=== PATIENT | female | born 1985 | race African-American/Black ===

== ENCOUNTER 2017-03-05 00:02 | Emergency (ER) | payer MEDICAID ==
[~2017-03-05] VITALS: Ht 157.5 cm; Wt 75.3 kg
[~2017-03-05 00:02] MED LIST: IBUPROFEN600 MG ORAL; NKM
[2017-03-05 00:13] VITALS: BP 131/80
[2017-03-05] MEDS ORDERED: Bactrim DS (160mg/800mg) tab ORAL ONE (00:30)
[2017-03-05] MEDS ORDERED: Cephalexin 500mg cap ORAL ONE (00:30)
[2017-03-05] MEDS ORDERED: IBUPROFEN600 MG ORAL (00:39)
[2017-03-05] MEDS ORDERED: KEFLEX500 MG ORAL (00:39)
[2017-03-05] MEDS ORDERED: BACTRIM DS TAB1 EAC1 ORAL (00:39)
[2017-03-05 00:45] VITALS: BP 131/80
--- NOTE | 2017-03-05 03:04 | Emergency Room Report ---
History of Present Illness General Chief Complaint: Skin Rash/Abscess Source: Patient Present Illness HPI 31-year-old female presents ED for evaluation. States that she has spider bite on her buttock x3 days. Pain is a 6/10, throbbing, nonradiating. Denies fevers or chills. Denies any bleeding or discharge. No other aggravating relieving factors. Denies any other associated symptoms Allergies: Coded Allergies: No Known Allergies (Unverified , 01/31/16) Patient History Past Medical History: none Past Surgical History: none Pertinent Family History: none Social History: Denies: smoking, alcohol use, drug use Last Menstrual Period: 02/21/17 Now: No : 2 Para: 1 Immunizations: UTD Reviewed Nursing Documentation: PMH: Agreed, PSxH: Agreed Nursing Documentation-PMH Past Medical History: No History, Except For Review of Systems All Other Systems: negative except mentioned in HPI Physical Exam Vital Signs Date Time Temp Pulse Resp B/P (MAP) Pulse Ox O2 Delivery O2 Flow Rate FiO2 03/05/17 00:10 98.8 102 14 131/80 96 Room Air Sp02 EP Interpretation: reviewed, normal General Appearance: no apparent distress, alert, GCS 15, non-toxic Head: normocephalic Eyes: bilateral eye normal inspection, bilateral eye PERRL ENT: normal ENT inspection Neck: normal inspection Respiratory: normal inspection Cardiovascular #1: normal inspection Gastrointestinal: normal inspection Rectal: deferred Genitourinary: no CVA tenderness Musculoskeletal: normal inspection Neurologic: alert, oriented x3, responsive, motor strength/tone normal, sensory intact, speech normal Psychiatric: normal inspection Skin: other - induration/erythema noted to buttock. no fluctuance or discharge Lymphatic: normal inspection Medical Decision Making Diagnostic Impression: Primary Impression: Insect bite Qualified Codes: W57.XXXA - Bitten or stung by nonvenomous insect and other nonvenomous arthropods, initial encounter ER Course Hospital Course 31-year-old female presents to ED with redness, swelling to buttock Differential diagnoses include: Cellulitis, dermatitis, insect bite, abscess Clinical course Patient placed on stretcher. After initial history, physical exam reveals a young female in no acute distress. On exam there is a site for mild erythema and induration to the buttock. There is no fluctuance. There is no tenderness. no discharge noted given keflex/bactrim in ED Diagnosis - insect bite stable and discharged to home with prescription for Bactrim, motrin, Keflex. Warm soaks 3 times a day. Instructed to followup with PMD. Instructed return to ED if symptoms recur or worsen Last Vital Signs Date Time Temp Pulse Resp B/P (MAP) Pulse Ox O2 Delivery O2 Flow Rate FiO2 03/05/17 00:45 98.8 102 14 131/80 96 Room Air Status: improved Disposition: HOME, SELF-CARE Condition: Stable Scripts Ibuprofen* (MOTRIN*) 600 Mg Tablet 600 MG ORAL Q8H Y for For Pain, #30 TAB 0 Refills Prov: JENNIFER SOLITARIO M.D. 03/05/17 Trimethoprim/Sulfamethoxazole 160/800* (BACTRIM DS TABLET*) 1 Each Tablet 1 TAB ORAL Q12H, #14 TAB 0 Refills Prov: JENNIFER SOLITARIO M.D. 03/05/17 Cephalexin* (KEFLEX*) 500 Mg Capsule 500 MG ORAL Q6H, #28 CAP 0 Refills Prov: JENNIFER SOLITARIO M.D. 03/05/17 Referrals: NOT CHOSEN [facility]/,REFERRING Patient Instructions: Insect Bite, [id number] JENNIFER SOLITARIO M.D. Mar 05, 2017 03:04
== END 2017-03-05 00:45 | disposition home or self-care (01) ==
LOC: EMR 00:20
DX: S30.860A Insect bite (nonvenomous) of lower back and pelvis, initial encounter (principal); W57.XXXA Bitten or stung by nonvenomous insect and other nonvenomous arthropods, initial encounter; Y92.9 Unspecified place or not applicable; R21 Rash and other nonspecific skin eruption
CPT/HCPCS: 99284

== ENCOUNTER 2017-04-10 12:25 | Emergency (ER) | payer MEDICAID ==
[~2017-04-10] VITALS: Ht 157.5 cm; Wt 68.0 kg
[~2017-04-10 12:25] MED LIST changes: +BACTRIM DS TAB1 EAC1 ORAL; +KEFLEX500 MG ORAL
[2017-04-10 12:38] VITALS: BP 113/71
[2017-04-10 13:06] LABS: APPEARANCE,URINE CLEAR; BILIRUBIN, URINE NEGATIVE (NEGATIVE); COLOR,URINE PALE YELLOW; GLUCOSE, URINE (UA) NEGATIVE (NEGATIVE); KETONES,URINE NEGATIVE (NEGATIVE); LEUKOCYTE ESTERASE ,URINE 1+ (NEGATIVE); NITRITE,URINE NEGATIVE (NEGATIVE); PH,URINE 6.5 (4.5-8.0); PROTEIN,URINE NEGATIVE (NEGATIVE); UROBILINOGEN,URINE NORMAL MG/DL (0.0-1.0)
--- NOTE | 2017-04-10 13:34 | Emergency Room Report ---
History of Present Illness General Chief Complaint: Female Urogenital Problems Present Illness HPI 31-year-old female presents to the emergency department complaining of 3/10 in severity lower abdominal cramping in addition to moderate vaginal itching x3 days. she denies swollen tender lymph nodes, joint pain, external vaginal lesions fevers, chills, dysuria, urgency or frequency. denies vaginal bleeding or discharge. Denies nausea, vomiting or . Denies CP, Palpitations, LOC, AMS, dizziness, Changes in Vision, Sensation, paresthesias, or a sudden severe headache. She denies recent antibiotic use. started eating meat again x 1 week after being vegan for several years and as had intermittent upset stomach. Allergies: Coded Allergies: No Known Allergies (Unverified , 01/31/16) Patient History Past Medical History: see triage record Past Surgical History: none Pertinent Family History: none Immunizations: UTD Reviewed Nursing Documentation: PMH: Agreed, PSxH: Agreed Review of Systems All Other Systems: negative except mentioned in HPI Physical Exam Vital Signs Date Time Temp Pulse Resp B/P (MAP) Pulse Ox O2 Delivery O2 Flow Rate FiO2 04/10/17 12:28 97.7 91 20 113/71 99 Room Air Sp02 EP Interpretation: reviewed, normal General Appearance: no apparent distress, alert, GCS 15, non-toxic Head: normocephalic, atraumatic Eyes: bilateral eye normal inspection, bilateral eye PERRL ENT: hearing grossly normal, normal voice Neck: full range of motion Respiratory: lungs clear, normal breath sounds, speaking full sentences Cardiovascular #1: regular rate, rhythm Gastrointestinal: normal bowel sounds, non tender, soft Rectal: deferred Genitourinary: normal inspection, no CVA tenderness Musculoskeletal: back normal, gait/station normal, normal range of motion, non- tender Neurologic: alert, oriented x3, responsive, motor strength/tone normal, sensory intact, speech normal Skin: normal color, no rash, warm/dry, well hydrated Lymphatic: no adenopathy Medical Decision Making PA Attestation Dr. Kiran is my supervising Physician whom patient management has been discussed with. Diagnostic Impression: Primary Impression: Vaginitis Qualified Codes: N76.0 - Acute vaginitis Additional Impression: Gastritis Qualified Codes: K29.00 - Acute gastritis without bleeding ER Course 31-year-old female presents to the emergency department complaining of 3/10 in severity lower abdominal cramping in addition to moderate vaginal itching x3 days. she denies swollen tender lymph nodes, joint pain, external vaginal lesions fevers, chills, dysuria, urgency or frequency. denies vaginal bleeding or discharge. Denies nausea, vomiting or . Denies CP, Palpitations, LOC, AMS, dizziness, Changes in Vision, Sensation, paresthesias, or a sudden severe headache. She denies recent antibiotic use. started eating meat again x 1 week after being vegan for several years and as had intermittent upset stomach. Ddx considered but are not limited to UTi , Pyelo, STI, Stone, Cystitis, vaginal laceration, vaginitis. Vital signs: are WNL, pt. is afebrile H& PE are most consistent with: yeast vaginitis, and gastritis. ORDERS: - UA labs are attached - Most indicative of contamination: presence of equal amounts of bacteria and squamous cells, no elevation in inflammatory markers, nitrite negative. -Urine Hcg: Negative ED INTERVENTIONS: None required at this time. DISCHARGE: At this time pt. is stable for d/c to home. Will provide printed patient care instructions, and any necessary prescriptions. Care plan and follow up instructions have been discussed with the patient prior to discharge. Labs Test 04/10/17 12:55 Urine Color Pale yellow Urine Appearance Clear Urine pH 6.5 (4.5-8.0) Urine Specific [place] 1.015 (1.005-1.035) Urine Protein Negative (NEGATIVE) Urine Glucose (UA) Negative (NEGATIVE) Urine Ketones Negative (NEGATIVE) Urine Occult Blood 1+ (NEGATIVE) Urine Nitrite Negative (NEGATIVE) Urine Bilirubin Negative (NEGATIVE) Urine Urobilinogen Normal MG/DL (0.0-1.0) Urine Leukocyte Esterase 1+ (NEGATIVE) Urine RBC 2-4 /HPF (0 - 2) Urine WBC 2-4 /HPF (0 - 2) Urine Squamous Epithelial Cells Few /LPF (NONE/OCC) Urine Bacteria Occasional /HPF (NONE) Urine HCG, Qualitative Negative Last Vital Signs Date Time Temp Pulse Resp B/P (MAP) Pulse Ox O2 Delivery O2 Flow Rate FiO2 04/10/17 12:28 97.7 91 20 113/71 99 Room Air Disposition: HOME, SELF-CARE Condition: Stable Scripts Fluconazole (FLUCONAZOLE) 100 Mg Tablet 100 MG ORAL DAILY for 3 Days, #3 TAB 0 Refills Prov: Deedee Deshpande 04/10/17 Ranitidine Hcl* (ZANTAC*) 150 Mg Tablet 150 MG ORAL TWICE A DAY for 7 Days, #14 TAB Prov: Deedee Deshpande 04/10/17 Patient Instructions: Gastritis, Adult, [id number], Vaginal Yeast Infection, Adult Additional Instructions: Take medications as directed. Follow up with a Primary Care Provider in 3-5 days, even if your symptoms have resolved. --Please review list of primary care clinics, if you do not already have a primary care provider Return sooner to ED if new symptoms occur, or current symptoms become worse. - Please note that this Emergency Department Report was dictated using [employer] or probation officer technology software, occasionally this can lead to erroneous entry secondary to interpretation by the dictation equipment. Deedee Deshpande Apr 10, 2017 13:34
[2017-04-10] MEDS ORDERED: ZANTAC150 MG ORAL (13:35)
[2017-04-10] MEDS ORDERED: FLUCONAZOLE100 MG ORAL (13:35)
[2017-04-10 13:40] VITALS: BP 124/76
== END 2017-04-10 13:40 | disposition home or self-care (01) ==
LOC: EMR 13:40
DX: N76.0 Acute vaginitis (principal); R10.30 Lower abdominal pain, unspecified; K29.70 Gastritis, unspecified, without bleeding
CPT/HCPCS: 81003; 81025; 99284

== ENCOUNTER 2017-04-30 12:34 | Emergency (ER) | payer MEDICAID ==
[~2017-04-30] VITALS: Ht 157.5 cm; Wt 73.9 kg
[~2017-04-30 12:34] MED LIST changes: +FLUCONAZOLE100 MG ORAL; +ZANTAC150 MG ORAL
[2017-04-30] MEDS ORDERED: BACTRIM DS TAB1 EAC1 ORAL (13:39)
[2017-04-30] MEDS ORDERED: CEPHALEXIN500 MG ORAL (13:39)
--- NOTE | 2017-04-30 13:40 | Emergency Room Report ---
History of Present Illness General Chief Complaint: Skin Rash/Abscess Source: Patient Present Illness HPI 31-year-old female patient presents ER complaining of abscess on the back of her neck for the past 2 days. Patient reports the abscess has gotten bigger, more red, and painful during that time. Patient denies medication use for relief of symptoms. Patient reports history of abscess on breast that was previously drained; patient requesting abscess to be drained today. Patient denies fever, neck pain, rash, SOB, nausea, vomiting. Allergies: Coded Allergies: No Known Allergies (Unverified , 01/31/16) Patient History Past Medical History: see triage record Past Surgical History: none Pertinent Family History: none Social History: Denies: smoking, alcohol use, drug use Last Menstrual Period: 04/28/2017 Now: No Immunizations: UTD Reviewed Nursing Documentation: PMH: Agreed, PSxH: Agreed Nursing Documentation-PMH Past Medical History: No History, Except For Review of Systems All Other Systems: negative except mentioned in HPI Physical Exam Vital Signs Date Time Temp Pulse Resp B/P (MAP) Pulse Ox O2 Delivery O2 Flow Rate FiO2 04/30/17 12:39 98.4 80 14 109/67 98 Room Air Sp02 EP Interpretation: reviewed, normal General Appearance: no apparent distress, alert, GCS 15, non-toxic Head: normocephalic, atraumatic Eyes: bilateral eye normal inspection, bilateral eye PERRL Neck: full range of motion, no bony tend Respiratory: lungs clear, normal breath sounds, speaking full sentences Cardiovascular #1: regular rate, rhythm Musculoskeletal: back normal, gait/station normal, normal range of motion, non- tender Neurologic: alert, oriented x3, responsive, motor strength/tone normal, sensory intact, speech normal Psychiatric: mood/affect normal Skin: no rash, warm/dry, other - 3 cm erythematous raised, fluctuant abscess located on right side of posterior neck at bottom of hair line, no bleeding, no pus, no blisters, no vesicles Lymphatic: adenopathy Procedures Incision and Drainage Incision and Drainage : Consent: Verbal Site: Right side of posterior neck Blade Size: 11 I & D Procedure: betadine prep, sterile drapes applied, sterile dressing applied Wound Location: neck Wound's Depth, Shape: superficial Wound Length (cm): 3 Wound Explored: contaminated Irrigated w/ Saline (ccs): 2 Anesthesia: Lidocaine w/ Epi Volume Anesthetic (ccs): 2 Patient Tolerated: Well Complications: None Medical Decision Making PA Attestation Dr. Westfall is my supervising physician with whom patient management has been discussed with. Diagnostic Impression: Primary Impression: Abscess ER Course Pt. presents to the ED c/o abscess Ddx considered but are not limited to rash, cellulitis, abscess, sebaceous cyst , carbuncle, folliculitis. Vital signs: are WNL, pt. is afebrile ORDERS: Lidocaine with epinephrine ED INTERVENTIONS: Ibuprofen for pain Field block of abscess performed with lidocaine. I&D of abscess performed. Sterile dressing applied to wound following procedure. DISCHARGE: -Rx provided for Keflex -Rx provided for Bactrim At this time pt. is stable for d/c to home. Will provide printed patient care instructions and any necessary prescriptions. Care plan and follow up instructions have been discussed with the patient prior to discharge. Patient instructed to follow-up with primary care provider in 2 - 3 days for wound recheck. Patient questions asked and answered. ER precautions given. Patient instructed to return to ER immediately for any new or worsening of symptoms including but not limited to fever, worsening of pain symptoms. Last Vital Signs Date Time Temp Pulse Resp B/P (MAP) Pulse Ox O2 Delivery O2 Flow Rate FiO2 04/30/17 12:39 98.4 80 14 109/67 98 Room Air Status: improved Disposition: HOME, SELF-CARE Condition: Stable Scripts Trimethoprim/Sulfamethoxazole 160/800* (BACTRIM DS TABLET*) 1 Each Tablet 1 TAB ORAL TWICE A DAY for 7 Days, #14 TAB Prov: Amadou Kwong 04/30/17 Cephalexin* (KEFLEX*) 500 Mg Capsule 500 MG ORAL EVERY 12 HOURS for 7 Days, #14 CAP 0 Refills Prov: Amadou Kwong 04/30/17 Referrals: [facility] (PCP) Patient Instructions: Abscess Additional Instructions: Will provide printed patient care instructions and any necessary prescriptions. Care plan and follow up instructions have been discussed with the patient prior to discharge. Patient instructed to follow-up with primary care provider in 2 3 days for wound recheck. Patient questions asked and answered. ER precautions given. Patient instructed to return to ER immediately for any new or worsening of symptoms including but not limited to fever, worsening of pain symptoms. Amadou Kwong Apr 30, 2017 13:39
[2017-04-30 14:18] VITALS: BP 107/76
== END 2017-04-30 14:20 | disposition home or self-care (01) ==
LOC: EMR 13:20
DX: L02.11 Cutaneous abscess of neck (principal)
CPT/HCPCS: 10060; 99284

== ENCOUNTER 2017-06-18 18:47 | Emergency (ER) | payer MEDICAID ==
[~2017-06-18] VITALS: Ht 157.5 cm; Wt 73.9 kg
[~2017-06-18 18:47] MED LIST changes: +CEPHALEXIN500 MG ORAL
[2017-06-18 19:25] VITALS: BP 129/82
--- NOTE | 2017-06-18 20:18 | Emergency Room Report ---
History of Present Illness General Chief Complaint: Vaginal Source: Patient Present Illness HPI 31 yo female patient presents to ER complaining of vaginal discharge. Reports foul smelling discharge; denies bloody discharge. Denies dysuria, frequency, hematuria. Denies itchiness, rash, open genital wounds. Reports LMP was one month ago; normal. Reports recent sexual activity with man she is dating; states they are not exclusive, she has not slept with other people does not know if he has or not; denies use of contraceptive methods. ; hx of . Denies fever, back pain, HERRERA, vision changes. Reports cramping; states normal for her when shes about to begin her period. Denies chest pain, SOB. States friend reports similar symptoms, has not been tested for STI recently. Allergies: Coded Allergies: No Known Allergies (Unverified , 01/31/16) Patient History Past Medical History: see triage record Last Menstrual Period: 2nd week of may Now: No : 2 Reviewed Nursing Documentation: PMH: Agreed, PSxH: Agreed Review of Systems All Other Systems: negative except mentioned in HPI Physical Exam Vital Signs Date Time Temp Pulse Resp B/P (MAP) Pulse Ox O2 Delivery O2 Flow Rate FiO2 06/18/17 19:13 98.9 74 20 129/82 99 Room Air 99.0 Sp02 EP Interpretation: reviewed, normal General Appearance: well appearing, no apparent distress, alert, GCS 15 Head: normocephalic, atraumatic Eyes: bilateral eye normal inspection, bilateral eye PERRL ENT: hearing grossly normal, normal pharynx, no angioedema, normal voice, uvula midline, moist mucus membranes Neck: full range of motion Respiratory: lungs clear, normal breath sounds, no rhonchi, no respiratory distress, no accessory muscle use, no wheezing, speaking full sentences Cardiovascular #1: regular rate, rhythm, no edema Gastrointestinal: non tender, soft, no mass, non-distended, no guarding, no rebound Genitourinary: no CVA tenderness, deferred Musculoskeletal: back normal, digits/nails normal, gait/station normal, normal range of motion, non-tender, no calf tenderness Neurologic: alert, oriented x3, responsive, motor strength/tone normal, sensory intact Psychiatric: mood/affect normal Skin: no rash Lymphatic: no adenopathy Medical Decision Making PA Attestation Dr. Fong is my supervising Physician whom patient management has been discussed with. Diagnostic Impression: Primary Impression: STI (sexually transmitted infection) ER Course Pt. presents to the ED c/o urinary symptoms. Ddx considered but are not limited to gonorrhea, chalmydia, cystitis, pylonephritis. Vital signs: are WNL, pt. is afebrile Ordered UA, urine . ER COURSE UA negative for infection. Copy of results provided to patient. Urine Negative Discuss results with patient. Does not require treatment for UTI at this time. Due to recent history of unprotected sex, will treat patient for possible STI. Informed patient to followup with STI clinic for further testing and treatment as needed. Informed patient to instruct p Ordered Azithromycin and Rocephin DISCHARGE: Advised to use safe sex practices including but not limited to use of condoms. Instructed patient to follow up with STI clinic and/or PCP for future STI treatment and prevention. Instructed patient to inform partner of need for treatment to prevent future infection. At this time pt. is stable for d/c to home. Patient resting comfortably, in no acute distress, nontoxic appearing, talking on phone without difficulty. Will provide printed patient care instructions, and any necessary prescriptions. Care plan and follow up instructions have been discussed with the patient prior to discharge Patient questions asked and answered. Patient reports understanding and agreement to treatment plan. ER precautions provided. Patient instructed to return to ER immediately for any new or worsening of symptoms. Labs Test 06/18/17 19:17 Urine Color Pale yellow Urine Appearance Clear Urine pH 6.5 (4.5-8.0) Urine Specific [place] 1.015 (1.005-1.035) Urine Protein Negative (NEGATIVE) Urine Glucose (UA) Negative (NEGATIVE) Urine Ketones Negative (NEGATIVE) Urine Occult Blood Negative (NEGATIVE) Urine Nitrite Negative (NEGATIVE) Urine Bilirubin Negative (NEGATIVE) Urine Urobilinogen Normal MG/DL (0.0-1.0) Urine Leukocyte Esterase Negative (NEGATIVE) Urine HCG, Qualitative Negative Last Vital Signs Date Time Temp Pulse Resp B/P (MAP) Pulse Ox O2 Delivery O2 Flow Rate FiO2 06/18/17 19:13 98.9 74 20 129/82 99 Room Air 99.0 Disposition: HOME, SELF-CARE Condition: Stable Patient Instructions: Sexually Transmitted Disease, [id number] Additional Instructions: Followup with primary care provider in 3 -5 days. Followup with STI clinic for further diagnosis and treatment. All sexual partners must be evaluated and treated as well. Take medications as directed. Patient questions asked and answered. ER precautions given, patient instructed to return to ER immediately for any new or worsening of symptoms. Amadou Kwong Jun 18, 2017 20:18
[2017-06-18 20:30] LABS: APPEARANCE,URINE CLEAR; BILIRUBIN, URINE NEGATIVE (NEGATIVE); COLOR,URINE PALE YELLOW; GLUCOSE, URINE (UA) NEGATIVE (NEGATIVE); KETONES,URINE NEGATIVE (NEGATIVE); LEUKOCYTE ESTERASE ,URINE NEGATIVE (NEGATIVE); NITRITE,URINE NEGATIVE (NEGATIVE); PH,URINE 6.5 (4.5-8.0); PROTEIN,URINE NEGATIVE (NEGATIVE); UROBILINOGEN,URINE NORMAL MG/DL (0.0-1.0)
[2017-06-18] MEDS ORDERED: Azithromycin 250mg tab ORAL ONE (21:15)
[2017-06-18] MEDS ORDERED: Lidocaine 1% MPF 10mg/ml 5ml INJ ONE (21:15)
[2017-06-18 21:30] VITALS: BP 129/82
== END 2017-06-18 21:30 | disposition home or self-care (01) ==
LOC: EMR 19:45
DX: A64 Unspecified sexually transmitted disease (principal)
CPT/HCPCS: 81003; 81025; 96372; 99284; J0696; Q0144

== ENCOUNTER 2017-07-01 15:32 | Emergency (ER) | payer MEDICAID, BC ==
[~2017-07-01] VITALS: Ht 157.5 cm; Wt 72.6 kg
--- NOTE | 2017-07-01 15:47 | Emergency Room Report ---
History of Present Illness General Chief Complaint: Chest Pain Present Illness HPI 32 yo female patient presents to ER complaining of chest pain since 9AM this morning. Denies hx of LA or asthma. Reports using cocaine last night at a alliance party and smoking marijuana. Denies hx of drug use prior to last night. Reports feeling "anxiety this morning" following drug use. Denies pain radiating down arms. Denies fever, HERRERA, abdominal pain, vision changes, difficulty breathing. Allergies: Coded Allergies: No Known Allergies (Unverified , 01/31/16) Patient History Past Medical History: see triage record Social History: Reports: smoking - marijuana Last Menstrual Period: 06/25/17 Now: No : 2 Para: 1 Reviewed Nursing Documentation: PMH: Agreed; PSxH: Agreed Nursing Documentation-PMH Past Medical History: No History, Except For Hx Cardiac Problems: No - Uterine fibroids Review of Systems All Other Systems: negative except mentioned in HPI Physical Exam Vital Signs Date Time Temp Pulse Resp B/P (MAP) Pulse Ox O2 Delivery O2 Flow Rate FiO2 07/01/17 15:36 98.0 86 18 119/93 100 Room Air 98.1 Sp02 EP Interpretation: reviewed, normal General Appearance: well appearing, no apparent distress, alert, GCS 15, non- toxic Head: normocephalic, atraumatic Eyes: bilateral eye normal inspection, bilateral eye PERRL ENT: hearing grossly normal, normal pharynx, no angioedema, normal voice, TMs + canals normal, uvula midline, moist mucus membranes Neck: full range of motion Respiratory: lungs clear, normal breath sounds, no rhonchi, no respiratory distress, no accessory muscle use, no wheezing, speaking full sentences, other - chest TTP Gastrointestinal: non tender, soft, no mass, non-distended, no guarding, no rebound Musculoskeletal: back normal, digits/nails normal, gait/station normal, normal range of motion, non-tender Neurologic: alert, oriented x3, responsive, motor strength/tone normal, sensory intact Skin: no rash Lymphatic: no adenopathy Medical Decision Making PA Attestation Dr. Fong is my supervising Physician whom patient management has been discussed with. Diagnostic Impression: Primary Impression: Drug use Additional Impression: Musculoskeletal chest pain ER Course Pt presents to ED c/o chest pain. DDX considered but are not limited to asthma, viral URI, influenza, bronchitis, LA, drug toxicity. On PE, chest is TTP; chest pain likely musculoskeletal in nature. Patient instructed to take NSAIDs as needed for pain symptoms. Will order labs to check for cardiac etiology. VITAL SIGNS are WNL, patient is afebrile. Ordered labs, EKG, CXR, and meds. ER COURSE Labs unremarkable, no elevation in WBC. No elevation in troponin. Urine negative UA negative for infection. EKG negative for ST elevation or arrhythmia. CXR negative for acute disease. Urine drug screen positive for THC and cocaine. Patient sleeping in bed. Patient reports feeling better, ready to discharge home. Discuss lab results with patient. Informed pain may be musculoskeletal in nature or due to anxiety. Informed patient that drug toxicity can cause cardiac problems and other complications. Informed patient not to do drugs. Patient reports agreement. Patient reports feeling better now. Followup with PCP for further treatment and referral. Don't use drugs. Patient agrees. DISCHARGE: Rx provided for Tylenol. At this time pt is stable for d/c to home. Patient is resting comfortably in no acute distress, nontoxic appearing, able to answer questions without difficulty. Patient to take medications as instructed Will provide with patient care instructions and any necessary prescriptions. Care plan and follow-up instructions provided. Patient instructed to follow-up with primary care provider in 2-3 days. Patient questions asked and answered. Patient reports understanding and agreement to treatment plan. ER precautions given. Patient instructed to return to ER immediately for any new or worsening of symptoms including but not limited to increasing SOB, persistent fever. Labs Test 07/01/17 16:05 White Blood Count 8.7 K/UL (4.8-10.8) Red Blood Count 4.31 M/UL (4.20-5.40) Hemoglobin 13.7 G/DL (12.0-16.0) Hematocrit 38.9 % (37.0-47.0) Mean Corpuscular Volume 90 FL (80-99) Mean Corpuscular Hemoglobin 31.7 PG (27.0-31.0) Mean Corpuscular Hemoglobin Concent 35.2 G/DL (32.0-36.0) Red Cell Distribution Width 11.8 % (11.6-14.8) Platelet Count 407 K/UL (150-450) Mean Platelet Volume 6.1 FL (6.5-10.1) Neutrophils (%) (Auto) 71.5 % (45.0-75.0) Lymphocytes (%) (Auto) 20.2 % (20.0-45.0) Monocytes (%) (Auto) 6.0 % (1.0-10.0) Eosinophils (%) (Auto) 0.5 % (0.0-3.0) Basophils (%) (Auto) 1.8 % (0.0-2.0) Urine HCG, Qualitative Negative (NEGATIVE) Sodium Level 143 MMOL/L (136-145) Potassium Level 3.8 MMOL/L (3.5-5.1) Chloride Level 106 MMOL/L (98-107) Carbon Dioxide Level 26 MMOL/L (21-32) Anion Gap 11 mmol/L (5-15) Blood Urea Nitrogen 10 mg/dL (7-18) Creatinine 1.0 MG/DL (0.55-1.30) Estimat Glomerular Filtration Rate > 60 mL/min (>60) Glucose Level 85 MG/DL (74-106) Calcium Level 8.9 MG/DL (8.5-10.1) Total Bilirubin 0.4 MG/DL (0.2-1.0) Aspartate Amino Transf (AST/SGOT) 15 U/L (15-37) Alanine Aminotransferase (ALT/SGPT) 17 U/L (12-78) Alkaline Phosphatase 68 U/L (46-116) Total Creatine Kinase 240 U/L (26-308) Creatine Kinase MB 1.1 NG/ML (0.0-3.6) Creatine Kinase MB Relative Index 0.4 Troponin I 0.000 ng/mL (0.000-0.056) Total Protein 8.0 G/DL (6.4-8.2) Albumin 4.1 G/DL (3.4-5.0) Globulin 3.9 g/dL Albumin/Globulin Ratio 1.1 (1.0-2.7) Urine Opiates Screen Negative (NEGATIVE) Urine Barbiturates Screen Negative (NEGATIVE) Phencyclidine (PCP) Screen Negative (NEGATIVE) Urine Amphetamines Screen Negative (NEGATIVE) Urine Benzodiazepines Screen Negative (NEGATIVE) Urine Cocaine Screen Positive (NEGATIVE) Urine Marijuana (THC) Screen Positive (NEGATIVE) EKG Diagnostic Results Rate: normal Rhythm: NSR ST Segments: no acute changes ASA given to the pt in ED: Yes PA ScribNils Kwong PA-C Rhythm Strip Diag. Results EP Interpretation: yes Rate: 63 Rhythm: NSR, no PVC's, no ectopy LEIA Kwong PA-C Chest X-Ray Diagnostic Results Chest X-Ray Diagnostic Results : Chest X-Ray Ordered: Yes # of Views/Limited/Complete: 1 View Indication: Chest Pain EP Interpretation: Yes PA Xray: Interpretation reviewed, by supervising MD, and agrees with findings. Interpretation: no consolidation, no effusion, no pneumothorax, no acute cardiopulmonary disease Impression: No acute disease LEIA Scribe Grace Kwong PA-C Last Vital Signs Date Time Temp Pulse Resp B/P (MAP) Pulse Ox O2 Delivery O2 Flow Rate FiO2 07/01/17 15:36 98.0 86 18 119/93 100 Room Air 98.1 Disposition: HOME, SELF-CARE Condition: Stable Scripts Acetaminophen* (TYLENOL EXTRA STRENGTH*) 500 Mg Tablet 500 MG ORAL Q8H PRN for Prn Headache/Temp > 101, #30 TAB 0 Refills Prov: Amadou Kwong 07/01/17 Patient Instructions: Costochondritis, [id number], Drug Overdose Additional Instructions: Followup with primary care provider in 2-3 days. Discuss referral and treatment at that time. Take medications as directed. Don't use drugs. Patient questions asked and answered. ER precautions given, patient instructed to return to ER immediately for any new or worsening of symptoms including but not limited to chest pain, SOB, abdominal pain, fever, intractable vomiting, vision changes. Amadou Kwong Jul 01, 2017 15:47
[2017-07-01 16:32] LABS: BASOPHILS % (AUTO) 1.8 % (0.0-2.0); EOSINOPHILS % (AUTO) 0.5 % (0.0-3.0); HEMATOCRIT 38.9 % (37.0-47.0); HEMOGLOBIN 13.7 G/DL (12.0-16.0); LYMPHOCYTES % (AUTO) 20.2 % (20.0-45.0); MEAN CORPUSCULAR VOLUME 90 FL (80-99); NEUTROPHILS % (AUTO) 71.5 % (45.0-75.0); PLATELET COUNT 407 K/UL (150-450); RED BLOOD COUNT 4.31 M/UL (4.20-5.40); RED CELL DISTRIBUTION WIDTH 11.8 % (11.6-14.8); WHITE BLOOD COUNT 8.7 K/UL (4.8-10.8)
[2017-07-01 16:37] VITALS: BP 119/93
--- NOTE | 2017-07-01 16:45 | Diagnostic Imaging Report ---
Indication: Chest pain Technique: One view of the chest Comparison: 10/03/2011 Findings: Lungs and pleural spaces are clear. Heart size is normal. There is no significant interim change Impression: No acute process
[2017-07-01 17:05] LABS: ANION GAP 11 mmol/L (5-15); BLOOD UREA NITROGEN 10 mg/dL (7-18); CALCIUM 8.9 MG/DL (8.5-10.1); CARBON DIOXIDE 26 MMOL/L (21-32); CHLORIDE 106 MMOL/L (98-107); POTASSIUM 3.8 MMOL/L (3.5-5.1); SODIUM 143 MMOL/L (136-145)
[2017-07-01 17:20] LABS: ALANINE AMINOTRANSFERASE 17 U/L (12-78); ALBUMIN 4.1 G/DL (3.4-5.0); ALBUMIN/GLOBULIN RATIO 1.1 (1.0-2.7); ALKALINE PHOSPHATASE 68 U/L (46-116); ASPARTATE AMINO TRANSFERASE 15 U/L (15-37); BILIRUBIN,TOTAL 0.4 MG/DL (0.2-1.0); CKMB 1.1 NG/ML (0.0-3.6); CREATINE KINASE 240 U/L (26-308)
[2017-07-01] MEDS ORDERED: TYLENOL EXTRA500 MG ORAL (18:19)
[2017-07-01 18:58] VITALS: BP 119/93
--- NOTE | 2017-07-11 18:21 | Cardiology Report ---
APPROVED REPORT EKG Measurement Heart [id number] Sinus rhythm with 1st degree AV block Otherwise normal ECG
== END 2017-07-01 19:00 | disposition home or self-care (01) ==
LOC: EMR 16:45
DX: R07.89 Other chest pain (principal); F12.90 Cannabis use, unspecified, uncomplicated
CPT/HCPCS: 36415; 71045; 80053; 80307; 81025; 82550; 82553; 84484; 85025; 93005; 99283

== ENCOUNTER 2019-02-01 11:28 | Emergency (ER) | payer BC, MEDICAID ==
[~2019-02-01] VITALS: Ht 157.5 cm; Wt 77.1 kg
[~2019-02-01 11:28] MED LIST changes: +TYLENOL EXTRA500 MG ORAL
[2019-02-01] MEDS ORDERED: PRENATAL GUMMI1 EACH PO (11:45)
--- NOTE | 2019-02-01 12:00 | NUR ---
ED Nurse Note:urine sent to labs
[2019-02-01 12:23] LABS: APPEARANCE,URINE CLEAR; BILIRUBIN, URINE NEGATIVE (NEGATIVE); COLOR,URINE PALE YELLOW; GLUCOSE, URINE (UA) NEGATIVE (NEGATIVE); KETONES,URINE NEGATIVE (NEGATIVE); LEUKOCYTE ESTERASE ,URINE 2+ (NEGATIVE); NITRITE,URINE NEGATIVE (NEGATIVE); PH,URINE 6 (4.5-8.0); PROTEIN,URINE NEGATIVE (NEGATIVE); UROBILINOGEN,URINE NORMAL MG/DL (0.0-1.0)
--- NOTE | 2019-02-01 13:15 | NUR ---
ED Nurse Note:blood sent to labs
--- NOTE | 2019-02-01 13:56 | NUR ---
ED Nurse Note:pt. went to abdominal U/S
--- NOTE | 2019-02-01 14:33 | NUR ---
ED Nurse Note:pt. is back from U/S - given food
--- NOTE | 2019-02-01 14:51 | Emergency Room Report ---
History of Present Illness General Chief Complaint: Complications Source: Patient Present Illness HPI 33-year-old female presents to the emergency department complaining of 5 out of 10 severity lower abdominal cramping during early x2 days. Patient reports that she is G2, P1 with one previous normal vaginal delivery without complications. Patient states that she does see [employer] regularly. Patient denies vaginal bleeding. She reports vaginal discharge. Patient states that she was treated using vaginal cream 2 months ago for bacterial vaginosis. Patient states that she has had sexual intercourse with her partner since and her symptoms returned. She denies suspicion of STI. She denies nausea, vomiting, constipation, diarrhea. Patient denies urinary frequency, urgency, hematuria, dysuria or genital lesions/rashes. She denies fevers or chills. She reports her symptoms are intermittent and states she has not noticed an increase in frequency.Pt. with hx of fibroids. Denies CP, Palpitations, LOC, AMS , dizziness, Changes in Vision, Sensation, paresthesias, or a sudden severe headache. Allergies: Coded Allergies: No Known Allergies (Unverified , 01/31/16) Patient History Past Medical History: see triage record Past Surgical History: none Pertinent Family History: none Now: Yes - 22 weeks Reviewed Nursing Documentation: PMH: Agreed; PSxH: Agreed Nursing Documentation-PMH Past Medical History: No History, Except For Hx Cardiac Problems: No - Uterine fibroids Review of Systems All Other Systems: negative except mentioned in HPI Physical Exam Vital Signs Date Time Temp Pulse Resp B/P (MAP) Pulse Ox O2 Delivery O2 Flow Rate FiO2 02/01/19 11:40 98.8 98 20 102/67 (79) 97 Room Air Sp02 EP Interpretation: reviewed, normal General Appearance: no apparent distress, alert, GCS 15, non-toxic Head: normocephalic, atraumatic Eyes: bilateral eye normal inspection, bilateral eye PERRL ENT: hearing grossly normal, normal voice Neck: full range of motion Respiratory: chest non-tender, lungs clear, normal breath sounds, speaking full sentences Cardiovascular #1: regular rate, rhythm Gastrointestinal: normal bowel sounds, non tender, soft, other - gravid, fundal height just above umbillicus Rectal: deferred Genitourinary: normal inspection, other - modified speculum exam, to obtain sample of D/c for wet mount prep, milky white malodorus d/c was present. Musculoskeletal: back normal, gait/station normal, normal range of motion, non- tender Neurologic: alert, oriented x3, responsive, motor strength/tone normal, sensory intact, normal gait, speech normal, grossly normal Psychiatric: judgement/insight normal Skin: no rash Lymphatic: no adenopathy Medical Decision Making PA Attestation Dr. Brown Is my supervising Physician whom patient management has been discussed with. Diagnostic Impression: Primary Impression: Bacterial vaginosis in Additional Impression: Abdominal cramping affecting ER Course 33-year-old female presents to the emergency department complaining of 5 out of 10 severity lower abdominal cramping during early x2 days. Patient reports that she is G2, P1 with one previous normal vaginal delivery without complications. Patient states that she does see [employer] regularly. Patient denies vaginal bleeding. She reports vaginal discharge. Patient states that she was treated using vaginal cream 2 months ago for bacterial vaginosis. Patient states that she has had sexual intercourse with her partner since and her symptoms returned. She denies suspicion of STI. She denies nausea, vomiting, constipation, diarrhea. Patient denies urinary frequency, urgency, hematuria, dysuria or genital lesions/rashes. She denies fevers or chills. She reports her symptoms are intermittent and states she has not noticed an increase in frequency.Pt. with hx of fibroids. Denies CP, Palpitations, LOC, AMS , dizziness, Changes in Vision, Sensation, paresthesias, or a sudden severe headache. Ddx considered but are not limited to: Fibroid, ectopic , Fibroid, Spontaneous , Vital signs: are WNL, pt. is afebrile H&PE are most consistent with: Vaginosis, UTI during early , Inevitable , Spontaneous - Pt. nontoxic in appearance, NAD, no evidence to suggest acute abdomen at this time. ORDERS: -Urine hcg- Positive -Wet mount prep: Many clue cells UA: Within normal limits -Serum Hcg Quant: -Pelvic US complete- normal intrauterine estimated at 21 weeks, 2 days weeks gestation with a heart rate of 148 -I do not identify an emergent condition at this time. With current presentation , pt. is stable for close outpatient follow up and conservative treatment. D/ w pt. to return promptly to ED with worsening or new symptoms.- Pt. verbalizes' understanding and agreement with proposed treatment plan. DISCHARGE: At this time pt. is stable for d/c to home. Will provide printed patient care instructions, and any necessary prescriptions. Care plan and follow up instructions have been discussed with the patient prior to discharge. Labs Test 02/01/19 11:55 02/01/19 13:00 Urine Color Pale yellow Urine Appearance Clear Urine pH 6 (4.5-8.0) Urine Specific [place] 1.005 (1.005-1.035) Urine Protein Negative (NEGATIVE) Urine Glucose (UA) Negative (NEGATIVE) Urine Ketones Negative (NEGATIVE) Urine Blood Negative (NEGATIVE) Urine Nitrite Negative (NEGATIVE) Urine Bilirubin Negative (NEGATIVE) Urine Urobilinogen Normal MG/DL (0.0-1.0) Urine Leukocyte Esterase 2+ (NEGATIVE) Urine RBC 0 /HPF (0 - 2) Urine WBC 2-4 /HPF (0 - 2) Urine Squamous Epithelial Cells Moderate /LPF (NONE/OCC) Urine Bacteria Few /HPF (NONE) Urine HCG, Qualitative Positive (NEGATIVE) Human Chorionic Gonadotropin, Quant 02059 mIU/mL (1-6) CT/MRI/US Diagnostic Results CT/MRI/US Diagnostic Results : Imaging Test Ordered: US OB Impression "Normal intrauterine estimated at 21 weeks, 2 days weeks gestation with a heart rate of 148" per official radiology report- Please see report for specific details. Last Vital Signs Date Time Temp Pulse Resp B/P (MAP) Pulse Ox O2 Delivery O2 Flow Rate FiO2 02/01/19 11:40 98.8 98 20 102/67 (79) 97 Room Air Disposition: HOME, SELF-CARE Condition: Stable Scripts Acetaminophen (8 HOUR PAIN RELIEF) 650 Mg Tablet.er 650 MG ORAL EVERY 8 HOURS, #20 TAB Prov: Deedee Deshpande 02/01/19 Metronidazole* (FLAGYL*) 500 Mg Tablet 500 MG ORAL BID for 7 Days, #14 TAB Prov: Deedee Deshpande 02/01/19 Referrals: NON PHYSICIAN (PCP) Patient Instructions: Abdominal Pain During , [id number], Bacterial Vaginosis, [id number] Additional Instructions: Take medications as directed. Follow up with a OBGYN within 3 days, even if your symptoms have resolved. Return sooner to ED if new symptoms occur, or current symptoms become worse. - Please note that this Emergency Department Report was dictated using [employer] technology software, occasionally this can lead to erroneous entry secondary to interpretation by the dictation equipment. Deedee Deshpande Feb 01, 2019 14:51
[2019-02-01] MEDS ORDERED: METRONIDAZOLE500 MG ORAL (15:03)
[2019-02-01] MEDS ORDERED: 8 HOUR PAIN RE650 MG ORAL (15:03)
--- NOTE | 2019-02-01 15:31 | Diagnostic Imaging Report ---
Indication: Sharp pelvic pain and cramping, patient, history of fibroids Technique: Transabdominal images of the uterus and fetus Comparison: none Findings: There is a single live intrauterine . This demonstrates cephalic presentation. This demonstrates positive heart activity, heart rate 148 bpm. motion is also noted The placenta is anterior fundal, clears the internal cervical os. The cervix is closed, endocervical canal measuring approximately 4.7 cm in length. Amniotic fluid volume is normal, amniotic fluid index 17 cm Estimated gestational age by average of ultrasound measurements is 21 weeks 2 days. Estimated date of delivery 06/12/2019. Estimated gestational age by dates is 23 weeks 4 days. Due to the emergent nature of the exam, as detailed assessment of anatomy was not performed. Normal cord insertion and normal three-vessel cord are demonstrated. Normal four-chamber heart is demonstrated. The spine is grossly normal. Impression: 21 week 2 day, by average ultrasound measurements, intrauterine . No unusual features
--- NOTE | 2019-02-01 15:40 | NUR ---
ER DISCHARGE NOTE: Patient is cleared to be discharged per ERMD, pt is aox4, on room air, with stable vital signs. pt was given dc and prescription instructions, pt was able to verbalize understanding, pt is able to ambulate with steady gait. pt took all belongings.
[2019-02-01 15:49] VITALS: BP 102/67
== END 2019-02-01 15:52 | disposition home or self-care (01) ==
LOC: EMR 12:59
DX: O23.592 Infection of other part of genital tract in pregnancy, second trimester (principal); B96.89 Other specified bacterial agents as the cause of diseases classified elsewhere; Z3A.21 21 weeks gestation of pregnancy; O26.892 Other specified pregnancy related conditions, second trimester; R10.30 Lower abdominal pain, unspecified
CPT/HCPCS: 36415; 76805; 81003; 81025; 84702; 87210; Z7502; 99284